=== PATIENT | female | born 1950 | race Caucasian/White ===

== ENCOUNTER 2022-04-09 20:39 | Emergency (ER) | payer MEDICARE, SELFPAY ==
[2022-04-09 20:40] VITALS: BP 142/82; PULSE 98; RESP 16; TEMP 37.5; O2SAT 88; BMI 18.1
[2022-04-09 20:47] VITALS: BP 142/82; PULSE 98; RESP 16; TEMP 37.5; O2SAT 88
[2022-04-09 20:49] VITALS: TEMP 36.9; O2SAT 93
--- NOTE | 2022-04-09 21:44 | EDS_ITS ---
HPI History of Present Illness Chief Complaint: General Illness Informant: patient Onset/Context/Timing Onset: Today Context: Sudden Onset Timing: Intermittent and Lasts (Approximately 30 minutes) Quality: Lightheaded, shaky Location: Generalized Worsened by: Nothing Relieved by: Nothing Narrative Narrative: Patient presents with lightheadedness that began today. Patient states it began rather suddenly. Patient states she was playing cards and dice game when the sy mptoms began. Patient states it lasted approximately 30 minutes. Patient states she felt lightheaded and shaky all over. Patient states nothing makes it better nothing makes it worse. Patient states she had similar symptoms with prior heart attack. Patient admits to a cough but denies any shortness of breath. Patient does admit to some mild diaphoresis. Patient admits to an episode of nausea and vomiting with this. Patient denies any fevers or chills. Patient denies any palpitations. Patient denies any chest pain. [facility] Medical History History of heart attack Allergy/AdvReac Type Severity Reaction Status Date / Time No Known Allergies Allergy Verified 04/09/22 20:47 Surgical History no surgical history no surgical history Social History Smoking Status: Current every day smoker tobacco type: cigarettes ROS ROS ED Constitutional Constitutional ED: Reports sweats; Denies chills or fever(s) Eyes Eyes: Denies blurry vision or change in vision ENT ENT ED: Denies rhinorrhea or sore throat Cardiovascular Cardiovascular: Denies chest pain or palpitations Respiratory/Chest Respiratory/Chest: Reports cough; Denies dyspnea Gastrointestinal Gastrointestinal: Reports nausea and vomiting Genitourinary Genitourinary ED: Reports urinary frequency; Denies dysuria or hematuria Musculoskeletal Musculoskeletal: Reports back pain; Denies neck pain Integumentary Denies abscess or rash Neurologic Neurologic: Denies headache(s) or weakness Allergic/Immunologic Allergic/Immunologic ED: Denies mouth swelling or urticaria EXAM Physical Exam Const Vital Signs: 04/09/22 20:40 04/09/22 20:47 04/09/22 20:47 Temperature 99.5 F H 99.5 F H Temperature Source Temporal Temporal Pulse Rate 98 98 Respiratory Rate 16 16 Respiratory Effort Short of Breath Blood Pressure 142/82 H 142/82 H Blood Pressure Mean 102 102 Pulse Ox 88 88 Oxygen Delivery Method Room Air Room Air Oxygen Flow Rate (L/min) 04/09/22 20:49 04/09/22 22:38 04/09/22 22:38 Temperature 98.4 F Temperature Source Oral Pulse Rate 101 H Respiratory Rate Respiratory Effort Blood Pressure 135/113 H Blood Pressure Mean 120 Pulse Ox 93 Oxygen Delivery Method Room Air Nasal Cannula Oxygen Flow Rate (L/min) 2 Positive well nourished and well developed General Appearance ED: well developed and NAD HEENT Reports moist mucous membranes Neck supple and no JVD Resp normal respiratory effort and clear to auscultation bilaterally Cardio regular rate, regular rhythm and no murmurs GI normal to inspection, nondistended, normoactive bowel sounds and non-tender Palpation: soft Extremity normal to inspection General Extremety ED: Negative for edema or tenderness General Extremity: Negative for edema Neuro oriented x3, CN's II-XII intact bilaterally and no sensory deficits noted Sensorium / Orientation: alert Motor Exam: strength 5/5 throughout Psych mental status grossly normal Skin no rashes or lesions noted MDM MDM MDM Narrative Medical decision making narrative: Patient was given aspirin. EKG was obtained. On my interpretation, it showed a normal sinus rhythm with a rate of 98. LA interval, QRS interval, and QTc intervals were all normal. [place] was normal. There are no acute ST or T wave changes. CBC shows a mild leukocytosis of 17.2. Basic metabolic profile was within normal limits. High-sensitivity troponin was normal 3. Portable 1 view chest x-ray was obtained. On my interpretation, lung house are clear. There is normal cardiac silhouette. Bony thorax is normal. There is no acute process noted. Radiologist also interpreted the x-ray and agrees. 2-hour repeat high- sensitivity troponin was obtained and was normal at 4. Patient was advised of her findings. Patient has a HEART score of 4. (2 for age, and 2 for history of coronary artery disease). Patient states that when her son was in the room earlier, she was having pain in her left scapular area. Patient states her son was able to rub the area and it felt better. Patient was advised that this is unlikely to be of cardiac etiology because of that. Patient was instructed to follow-up with her primary care physician in 3 to 5 days. Patient understood and was agreeable with the plan. All questions were answered. Lab Data Attestation: I reviewed the patient's lab results. Labs: Laboratory Results - last 24 hr 04/09/22 04/09/22 04/10/22 20:55 22:12 00:15 WBC 17.2 H RBC 4.39 Hgb 13.3 Hct 39.9 MCV 90.9 MCH 30.3 MCHC 33.3 RDW Std Deviation 46.1 H RDW Coeff of Pradeep 13.7 Plt Count 364 MPV 9.4 Immature Gran % (Auto) 0.600 Neut % (Auto) 73.3 H Lymph % (Auto) 16.7 L Luna % (Auto) 8.8 Eos % (Auto) 0.3 Baso % (Auto) 0.3 Absolute Neuts (auto) 12.6 H Absolute Lymphs (auto) 2.86 Nucleated RBC % 0 Differential Comment SCANNED Diff Path Review May foll Sodium 135 L Potassium 4.2 Chloride 102 Carbon Dioxide 28.0 Anion Gap 5 BUN 10 Creatinine 0.70 Estim Creat Clear Calc 42.95 Est GFR (MDRD) Af Amer 106 Est GFR (MDRD) Non-Af 87 BUN/Creatinine Ratio 14.3 Glucose 106 Calcium 9.1 Troponin I High Sens 3 4 Radiography Chest X-Ray - ED: 1 View, Read by ED Physician, Read by Radiologist, No Acute Disease and Chronic Changes Diagnostic Testing: Clinical Impression(s) from Imaging Studies Chest X-Ray 04/09/22 22:00 IMPRESSION: COPD. No acute abnormal cardiopulmonary finding. Electronically Signed: Smooth Turk MD at 22:13 EST , EKG Initial EKG: Attestation: I personally reviewed and interpreted this EKG as follows: Interpretation: Sinus Rhythm (98) and No Acute Injury Pattern Prior EKG tracings: not available for review Prior: No Prior Discharge Plan Triage Chief Complaint: General Illness ED Provider: Juan Vicente Dx/Rx/DC Orders Clinical Impression: Chest pain, COPD (chronic obstructive pulmonary disease) Instructions: ED Chest Pain, Uncertain Cause Primary Care Provider: Care Physician,No Primary Referrals: Peng Kessler MD [Med Staff - Computer Systems Designer] - 3-5 Days Care Physician,No Primary [Primary Care Provider] - Disposition Disposition: Home, Self Care
--- NOTE | 2022-04-09 21:48 | EKG12_ITS ---
Test Reason : DYSRHYTHMIA Blood Pressure : / mmHG Vent. Rate : 098 BPM Atrial Rate : 098 BPM P-R Int : 180 ms QRS Dur : 080 ms QT Int : 334 ms P-R-T Axes : 078 069 068 degrees QTc Int : 426 ms Normal sinus rhythm Normal ECG Confirmed by SUMAN CÁRDENAS, KORY ([id number]), photographic editor BERNIE MYERS ([id number]) on 04/11/2022 9:46:43 AM Referred By: SOPHIE Confirmed By:KORY WILL MD
[2022-04-09] MEDS: Aspirin 81 MG TAB.CHEW 324 MG PO (21:55)
--- NOTE | 2022-04-09 22:00 | RAD_ITS ---
STUDY: X-RAY CHEST REASON FOR EXAM: Female, 72 years old. Chest pain TECHNIQUE: Portable, upright, AP chest x-ray COMPARISON: None. FINDINGS: There is hyperinflation of the lungs consistent with chronic obstructive lung disease (COPD). There is no demonstrated pleural abnormality. Normal size heart. Normal mediastinum and heather. Normal visualized pulmonary arteries. Aortic arch calcification. There is no demonstrated abnormality of the visualized soft tissue structures of the upper abdomen. RAD/Chest 1 View (Portable) IMPRESSION: COPD. No acute abnormal cardiopulmonary finding. Electronically Signed: Smooth Turk MD at 22:13 EST ,
[2022-04-09 22:04] LABS: Absolute Lymphocyte Count 2.86 X10^3/uL (0.83-4.51); Absolute Neutrophil Count 12.6 X10^3/uL (2.0-7.7); Basophil# 0.06 X10^3/uL; Basophil% 0.3 % (0-1); Eosinophil# 0.05 X10^3/uL; Eosinophils% 0.3 % (0-5); Hematocrit 39.9 % (37-47); Hemoglobin 13.3 g/dL (12.0-15.0); Lymphocyte # 2.86 X10^3/ul (0.83-4.51); Lymphocyte % 16.7 % (19-41); Mean Corp Hgb Conc 33.3 g/dL (32-36); Mean Corpuscular Hgb 30.3 pg (27.0-32.0); Mean Corpuscular Volume 90.9 fL (81-99); Mean Platelet Vol. 9.4 fl (6.2-12.0); Monocyte# 1.51 X10^3/uL; Monocyte% 8.8 % (0-10); NRBC Flagged by Analyzer 0 % (0-5); Neutrophil # 12.57 X10^3/uL (2.7-7.7); Neutrophil % 73.3 % (47-70); POSITIVE DIFFERENTIAL YES; Platelet Count 364 K/mm3 (150-450); RBC Distribution Width CV 13.7 % (11.6-14.6); RBC Distribution Width SD 46.1 fl (35.1-43.9); Red Blood Count 4.39 M/mm3 (4.2-5.4); White Blood Count 17.2 K/mm3 (4.4-11.0)
[2022-04-09 22:13] LABS: Differential Indicated SCAN CRITERIA MET
[2022-04-09 22:35] LABS: Anion Gap 5 (5-15); BUN 10 mg/dL (7-18); BUN/Creat Ratio 14.3 RATIO (10-20); Calcium,Total 9.1 mg/dL (8.5-10.1); Chloride 102 mmol/L (98-107); EST Glomerular Filtration Rate 87 mL/min (>60); Est Glom Filt Rate - Afr Amer 106 mL/min (>60); Estimated Creatinine Clearance 42.95 ml/min; Glucose 106 mg/dL (74-106); Potassium 4.2 mmol/L (3.5-5.1); Sodium Level 135 mmol/L (136-145); Troponin-I HS (w/2H Reflex) 3 pg/mL (3.0-54.0)
[2022-04-09 22:38] VITALS: BP 135/113; PULSE 101
[2022-04-09 22:39] LABS: Differential Comment SCANNED
[2022-04-10 00:16] LABS: Reflex Troponin-HS? (from REC) Y
[2022-04-10 00:42] LABS: Troponin-I HS 4 pg/mL (3.0-54.0)
[2022-04-10 13:03] LABS: Pathologist Review Reviewed
== END 2022-04-10 01:15 | disposition home or self-care (01) ==
PROVIDERS: Emergency Provider Emergency Medicine; Visit Provider Emergency Medicine
DX: R07.9 Chest pain, unspecified (principal); J44.9 Chronic obstructive pulmonary disease, unspecified; I25.10 Atherosclerotic heart disease of native coronary artery without angina pectoris; F17.210 Nicotine dependence, cigarettes, uncomplicated; R11.2 Nausea with vomiting, unspecified; R35.0 Frequency of micturition; M25.512 Pain in left shoulder; R42 Dizziness and giddiness
CPT/HCPCS: 71045; 80048; 84484; 85025; 93005; 99285; A4216